=== PATIENT | male | born 1995 | race American Indian/Alaskan Native ===

== ENCOUNTER 2019-04-14 02:54 | Observation (INO) | payer OTHER ==
[2019-04-14] MEDS ORDERED: ASPIRIN PO ONE (03:40)
[2019-04-14] MEDS ORDERED: ASPIRIN ONE (03:44)
[2019-04-14 03:48] LABS: Basophils % (Auto) 0.6 % (0.0-1.8); Eosinophils # (Auto) 0.2 K/mm3 (0.0-0.4); Eosinophils % (Auto) 3.1 % (0.0-4.3); Hemoglobin 14.1 gm/dl (11.8-15.2); Lymphocytes # (Auto) 1.8 K/mm3 (1.2-5.4); Lymphocytes % (Auto) 30.9 % (13.4-35.0); Mean Corpuscular HGB Conc 34 % (32-34); Mean Corpuscular Volume 88 fl (84-94); Monocytes # (Auto) 0.4 K/mm3 (0.0-0.8); Monocytes % (Auto) 6.5 % (0.0-7.3); Platelet Count 160 K/mm3 (140-440); Red Blood Count 4.76 M/mm3 (3.65-5.03)
[2019-04-14 04:02] LABS: BUN/Creatinine Ratio 8; Blood Urea Nitrogen 9 mg/dL (9-20); Calcium 9.1 mg/dL (8.4-10.2); Hemolysis Index 4
--- NOTE | 2019-04-14 04:37 | XRay Report ---
CHEST 1 VIEW 04/14/2019 4:18 AM INDICATION / CLINICAL INFORMATION: Chest Pain. COMPARISON: None available. FINDINGS: SUPPORT DEVICES: None. HEART / MEDIASTINUM: No significant abnormality. LUNGS / PLEURA: No significant pulmonary or pleural abnormality. No pneumothorax. ADDITIONAL FINDINGS: No significant additional findings. IMPRESSION: No acute findings. Signer Name: Tom Koenig MD Signed: 04/14/2019 4:33 AM Workstation Name: [id number]
--- NOTE | 2019-04-14 05:28 | Emergency Department Report ---
ED General Adult HPI - General Chief complaint: Chest Pain Stated complaint: CHEST PAIN Time Seen by Provider: 04/14/19 04:32 Source: patient Mode of arrival: Stretcher Limitations: No Limitations - History of Present Illness Initial comments: 23-year-old male with no past medical history presents with the complaint of chest pain. Patient states the chest pain started an hour prior to arrival. Patient states an hour prior to reveals use cocaine. Patient states that he had no syncope or diaphoresis with this. Patient denies any nausea vomiting. P atient said he did have some acute onset of some severe breath with the use of cocaine but currently does not have this. Patient denies any history of PE or DVT. Severity scale (0 -10): 7 - Related Data Home Medications Medication Instructions Recorded Confirmed Last Taken No Known Home Medications [No 04/14/19 04/14/19 Unknown Reported Home Medications] Allergies Allergy/AdvReac Type Severity Reaction Status Date / Time No Known Allergies Allergy Verified 04/14/19 03:59 ED Review of Systems ROS: Stated complaint: CHEST PAIN Other details as noted in HPI Constitutional: denies: chills, fever Eyes: denies: eye pain, eye discharge, vision change ENT: denies: ear pain, throat pain Respiratory: denies: cough, shortness of breath, wheezing Cardiovascular: chest pain Endocrine: no symptoms reported Gastrointestinal: denies: abdominal pain, nausea, diarrhea Genitourinary: denies: urgency, dysuria Musculoskeletal: denies: back pain, joint swelling, arthralgia Skin: denies: rash, lesions Neurological: denies: headache, weakness, paresthesias Psychiatric: denies: anxiety, depression Hematological/Lymphatic: denies: easy bleeding, easy bruising ED Past Medical Hx - Past Medical History Previous Medical History?: No - Surgical History Past Surgical History?: No - Social History Smoking Status: Never Smoker Substance Use Type: Marijuana - Medications Home Medications: Home Medications Medication Instructions Recorded Confirmed Last Taken Type No Known Home Medications [No 04/14/19 04/14/19 Unknown History Reported Home Medications] ED Physical Exam - General Limitations: No Limitations General appearance: alert, in no apparent distress - Head Head exam: Present: atraumatic, normocephalic - Eye Eye exam: Present: normal appearance - ENT ENT exam: Present: mucous membranes moist - Neck Neck exam: Present: normal inspection - Respiratory Respiratory exam: Present: normal lung sounds bilaterally. Absent: respiratory distress - Cardiovascular Cardiovascular Exam: Present: regular rate, normal rhythm. Absent: systolic murmur, diastolic murmur, rubs, gallop - GI/Abdominal GI/Abdominal exam: Present: soft, normal bowel sounds - Rectal Rectal exam: Present: deferred - Extremities Exam Extremities exam: Present: normal inspection - Back Exam Back exam: Present: normal inspection - Neurological Exam Neurological exam: Present: alert, oriented X3 - Psychiatric Psychiatric exam: Present: normal affect, normal mood - Skin Skin exam: Present: warm, dry, intact, normal color. Absent: rash ED Course Vital Signs 04/14/19 04/14/19 04/14/19 03:10 03:15 03:20 Temperature 98.4 F 98.5 F Pulse Rate 87 85 82 Respiratory 16 10 L 14 Rate Blood Pressure 117/74 118/77 118/77 O2 Sat by Pulse 99 96 96 Oximetry 04/14/19 04/14/19 03:28 03:31 Temperature Pulse Rate 67 Respiratory 14 37 H Rate Blood Pressure 118/77 O2 Sat by Pulse 96 95 Oximetry ED Medical Decision Making - Lab Data Result diagrams: 04/14/19 03:33 04/14/19 03:33 - EKG Data EKG shows normal: sinus rhythm Rate: normal - EKG Data Interpretation: no acute changes - Medical Decision Making Patient given aspirin therapy while here in emergency department. Patient to be admitted to the hospitalist service for continued management and treatment with the acute usage of cocaine and the resulting chest pain. - Differential Diagnosis STEMI; arrhythmia; pneumonia; pneumothorax Critical care attestation.: If time is entered above; I have spent that time in minutes in the direct care of this critically ill patient, excluding procedure time. ED Disposition Clinical Impression: Cocaine abuse, Chest pain Disposition: OP ADMIT IP TO THIS HOSP Is pt being admited?: Yes Does the pt Need Aspirin: No Condition: Stable Instructions: Chest Pain (ED) Referrals: PRIMARY CARE, [Primary Care Provider] - 3-5 Days Time of Disposition: 05:28
[2019-04-14] MEDS ORDERED: TYLENOL PO PRN (05:42)
[2019-04-14] MEDS ORDERED: PERCOCET 5/325 PO PRN (05:42)
[2019-04-14] MEDS ORDERED: SODIUM CHLORIDE FLUSH SYRINGE 10 ML IV PRN (05:42)
[2019-04-14] MEDS ORDERED: ZOFRAN IV PRN (05:42)
--- NOTE | 2019-04-14 05:44 | History and Physical Report ---
History of Present Illness Date of examination: 04/14/19 History of present illness: 23 year old man with no medical history comes to the ER with complaints of chestl pain. Pain is in the left substernal area, sharp,intermittent every few hours, intensity 5/10, no radiation, cannot identify exacerbating or relieving factors. Denies nausea, vomiting, diaphoresis or shortness of breath Review of systems Constitutional: no weight loss, chills, fever Ears, eyes, nose, mouth and throat: no nasal congestion, no nasal discharge, no sinus pressure, no vision change, no red eye. Neck: No neck pain or rigidity. Cardiovascular: no palpitations, Respiratory: no cough Gastrointestinal: no hematochezia, abdominal pain Genitourinary : no frequency , no hematuria Musculoskeletal: no joint swelling or muscle ache Integumentary: no rash, no pruritis Neurological: no parathesias, no focal weakness Endocrine: no cold or heat intolerance, no polyuria or polydipsia Hematologic/Lymphatic: no easy bruising, no easy bleeding, no gland swelling Allergic/Immunologic: no urticaria, no angioedema. PAST MEDICAL HISTORY: none PAST SURGICAL HISTORY:None SOCIAL HISTORY:+ alcohol, +cocaine , +tobacco FAMILY HISTORY: Hypertension Medications and Allergies Allergies Allergy/AdvReac Type Severity Reaction Status Date / Time No Known Allergies Allergy Verified 04/14/19 03:59 Exam - Physical Exam Narrative exam: General Apperance: The patient lying in bed, breathing comfortable HEENT: Normocephalic, atraumatic. Pupils equally round and reactive to light, EOMI, no sclericterus or JVD or thyromegaly or nodule. , no carotid bruit, mucous membranes moist, no exudate or erythema Heart: S1-S2, regular is rhythm Lungs: Clear bilaterally, breathing comfortable Abdomen: Positive bowel sounds, soft, tender in the epigastric area, nondistended, no organomegaly Extremities: No edema cyanosis clubbing Skin: no rash, nodule, warm and dry Neuro: cranial nerves 2-12 intact, speech is fluent, motor/sensory intact - Constitutional Vitals: Temp Pulse Resp BP Pulse Ox 98.5 F 67 37 H 118/77 95 04/14/19 03:20 04/14/19 03:31 04/14/19 03:31 04/14/19 03:31 04/14/19 03:31 Results - Labs CBC & Chem 7: 04/14/19 03:33 04/14/19 03:33 - Imaging and Cardiology EKG: image reviewed Chest x-ray: image reviewed Assessment and Plan Assessment Chest pain Substance Abuse Plan Admit to medicine Check cardiac enzymes, stress test percocet for pain, aspirin, DVT prophalaxis
[2019-04-14 06:31] LABS: Creatine Kinase MB 3.9 ng/mL (0.0-4.0)
[2019-04-14 08:34] VITALS: BP 92/56
[2019-04-14] MEDS ORDERED: SODIUM CHLORIDE FLUSH SYRINGE 10 ML IV SCH (10:00)
[2019-04-14] MEDS ORDERED: LOVENOX SUB-Q SCH ×2 (10:00)
[2019-04-14] MEDS ORDERED: BABY ASPIRIN PO SCH (10:00)
--- NOTE | 2019-04-14 11:18 | Discharge Summary ---
Providers - Providers Date of Admission: 04/14/19 07:43 Attending physician: EFRAIN EID Primary care physician: SNEHA RUIZ MD Hospitalization Condition: Stable Hospital course: Patient was admitted for chest pains and he doesn't want to stay of the stress test so he left AMA. Counseling done. Disposition: DC-07 LEFT AGAINST MED ADVICE Core Measure Documentation - Palliative Care Palliative Care/ Comfort Measures: Not Applicable - Core Measures Any of the following diagnoses?: none - VTE Discharge Requirements Deep Vein Thrombosis/Pulmonary Embolism Present on Admission: No Has pt received <5 days of overlap therapy or INR<2.0: No Anticoagulant overlap therapy prescribed at discharge: No Contraindication No Overlap Therapy order at DC: Not Indicated Exam - Constitutional Vitals: Temp Pulse Resp BP Pulse Ox 98.5 F 57 L 21 92/56 97 04/14/19 03:20 04/14/19 08:00 04/14/19 08:00 04/14/19 08:00 04/14/19 08:00 Plan Follow up with: PRIMARY MD SARA [Primary Care Provider] - 3-5 Days Forms: AMA Form
== END 2019-04-14 10:18 | disposition left against medical advice (07) ==
LOC: ED 02:54 → SUATTDRO 02:54 → INTOOBSV 07:43 → 4A 07:43
PROVIDERS: ADMIT Internal Medicine; ATTEND Internal Medicine
DX: R07.89 Other chest pain (principal); F14.10 Cocaine abuse, uncomplicated; F17.200 Nicotine dependence, unspecified, uncomplicated
CPT/HCPCS: 36415; 71045; 80048; 82550; 82553; 84484; 85025; 93005; 93010; 99284; G0378

== ENCOUNTER 2019-09-09 17:45 | Emergency (ER) | payer SELFPAY ==
[2019-09-09 20:44] VITALS: BP 111/69
--- NOTE | 2019-09-09 20:47 | Event Note ---
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 Further treatment and workup at subsequent clinical providers discretion. Patient/guardian urged not to elope from the ED as their condition may be serious if not clinically assessed and managed. Initial orders include: VSS, pt in no acute distress referrals given to pt to follow up with ortho and [facility]
== END 2019-09-09 20:48 | disposition left against medical advice (07) ==
LOC: ED 17:45
DX: M25.561 Pain in right knee (principal); M25.562 Pain in left knee; Z53.21 Procedure and treatment not carried out due to patient leaving prior to being seen by health care provider